=== PATIENT | female | born 1940 | race Caucasian/White ===

== ENCOUNTER 2016-12-13 15:57 | Emergency (ER) | payer SELFPAY ==
[~2016-12-13] VITALS: Ht 152.4 cm; Wt 60.8 kg
[2016-12-13 17:08] VITALS: BP 124/81
== END 2016-12-13 17:08 | disposition home or self-care (01) ==
LOC: ED 15:57
DX: G44.209 Tension-type headache, unspecified, not intractable (principal); I10 Essential (primary) hypertension